=== PATIENT | male | born 1960 | race Asian ===

== ENCOUNTER 2019-04-13 14:09 | Inpatient (IN) | payer MEDICARE, MEDICAID ==
[~2019-04-13] VITALS: Ht 172.7 cm; Wt 77.6 kg
[~2019-04-13 14:09] MED LIST: DIVA-76 PO; LOSA25TA41 PO; RISP2 PO; ROSU20TA23 PO
[2019-04-13] MEDS ORDERED: RISP3 PO (15:04)
[2019-04-13] MEDS ORDERED: METF-960 PO (15:04)
[2019-04-13 15:06] VITALS: BP 151/82
[2019-04-13] MEDS ORDERED: LORazepam 2 MG TABLET PO PRN (15:15)
[2019-04-13] MEDS ORDERED: ZOLPIDEM TARTRATE 10 MG TABLET PO PRN (15:15)
[2019-04-13] MEDS ORDERED: HALOPERIDOL 5 MG TABLET PO PRN (15:15)
[2019-04-13] MEDS ORDERED: PNEUMOCOCCAL VACCINE POLYVALENT 0.5 ML VIAL [PPSV23] IM ONE (16:15)
[2019-04-13 16:21] VITALS: BP 159/87
[2019-04-13 16:54] LABS: GLUCOMETER DEV NAME(LOC) BV2S.; GLUCOSE,POINT OF CARE 148 MG/DL (70-110)
[2019-04-13] MEDS: RisperiDONE 3 MG TABLET PO SCH (16:54)
[2019-04-13] MEDS: DIVALPROEX SODIUM 500 MG DR TABLET PO SCH (16:55)
[2019-04-13] MEDS ORDERED: GLUCAGON,HUMAN RECOMBINANT 1 MG VIAL IM PRN (17:15)
[2019-04-13 20:50] LABS: GLUCOMETER DEV NAME(LOC) BV2S.; GLUCOSE,POINT OF CARE 153 MG/DL (70-110)
[2019-04-13] MEDS ORDERED: DEXTROSE 50%-WATER 25 GM/50 ML SYRINGE IVP PRN (21:00)
[2019-04-13] MEDS ORDERED: PETROLATUM,WHITE 28 GM JELLY TP PRN (21:00)
[2019-04-13] MEDS ORDERED: IBUPROFEN 600 MG TABLET PO PRN (21:00)
[2019-04-13] MEDS ORDERED: INSULIN LISPRO 100 UNITS/ML SQ PRN (21:00)
[2019-04-13] MEDS ORDERED: ACETAMINOPHEN 325 MG TABLET PO PRN (21:00)
[2019-04-13] MEDS ORDERED: ONDANSETRON HCL 4 MG TABLET PO PRN (21:00)
[2019-04-13] MEDS ORDERED: ALBUTEROL SULFATE HFA 90 MCG/PUFF 8 GM INHALER IH PRN (21:00)
[2019-04-13] MEDS ORDERED: MAGNESIUM HYDROXIDE SUSPENSION 30 ML UDCUP PO PRN (21:00)
[2019-04-13] MEDS ORDERED: BACITRACIN 28.4 GM OINTMENT TP PRN (21:00)
[2019-04-13] MEDS ORDERED: BENZOCAINE/MENTHOL LOZENGE MM PRN (21:00)
[2019-04-13] MEDS ORDERED: LOPERAMIDE HCL 2 MG CAPSULE PO PRN (21:00)
[2019-04-13] MEDS ORDERED: CloNIDine HCL 0.1 MG TABLET PO PRN (21:00)
[2019-04-13] MEDS ORDERED: MAG HYDROX/AL HYDROX/SIMETH ES 30 ML SUSPENSION UDCUP PO PRN (21:00)
[2019-04-13] MEDS: LOSARTAN POTASSIUM 25 MG TABLET PO SCH (21:37)
[2019-04-13 22:09] VITALS: BP 133/82
[2019-04-14 06:20] VITALS: BP 109/79
[2019-04-14 06:49] LABS: GLUCOMETER DEV NAME(LOC) BV2S.; GLUCOSE,POINT OF CARE 134 MG/DL (70-110)
[2019-04-14] MEDS ORDERED: MetFORMIN HCL 500 MG TABLET PO SCH (07:00)
[2019-04-14 07:50] LABS: BASOPHILS % (AUTO) 1.1 % (0.0-2.0); EOSINOPHILS % (AUTO) 6.5 % (1.0-6.0); HEMATOCRIT 40.7 % (41-53); HEMOGLOBIN 13.9 g/dL (13.5-17.5); LYMPHOCYTES # (AUTO) 1.8 K/uL (1.0-4.8); LYMPHOCYTES % (AUTO) 30.2 % (22.0-44.0); MEAN CORPUSCULAR HEMOGLOBIN 32.1 pg (26.0-34.0); MEAN CORPUSCULAR HGB CONC 34.2 G/dL (31.0-37.0); MEAN CORPUSCULAR VOLUME 94 fL (80-100); MONOCYTES # (AUTO) 0.7 K/uL (0.1-1.0); MONOCYTES % (AUTO) 11.7 % (2.0-9.0); NEUTROPHILS # (AUTO) 3.1 K/uL (1.8-7.7); NEUTROPHILS % (AUTO) 50.5 % (40.0-70.0); PLATELET COUNT (AUTO) 166 K/uL (150-450); RED BLOOD CELL COUNT(AUTO) 4.33 MIL/uL (4.50-5.90); RED CELL DISTRIBUTION WIDTH 12.8 % (11.5-14.5)
[2019-04-14 08:06] LABS: AMPHET/METH SCREEN,URINE NEGATIVE (NEGATIVE); BARBITURATE SCREEN, URINE NEGATIVE (NEGATIVE); BENZODIAZEPINES SCREEN,URINE NEGATIVE (NEGATIVE); CANNABINOID SCREEN,URINE NEGATIVE (NEGATIVE); COCAINE SCREEN,URINE NEGATIVE (NEGATIVE); METHADONE SCREEN, URINE NEGATIVE (NEGATIVE); OPIATE SCREEN,URINE NEGATIVE (NEGATIVE)
[2019-04-14 08:08] LABS: APPEARANCE,URINE CLEAR (CLEAR); BILIRUBIN,URINE NEGATIVE (NEGATIVE); GLUCOSE, URINE (UA) 500 mg/dL (NEGATIVE); KETONES,URINE NEGATIVE (NEGATIVE); LEUKOCYTE ESTERASE ,URINE NEGATIVE (NEGATIVE); NITRATE,URINE NEGATIVE (NEGATIVE); OCCULT BLOOD,URINE NEGATIVE (NEGATIVE); PROTEIN,URINE NEGATIVE (NEGATIVE); UROBILINOGEN,URINE 0.2 mg/dL (<=1.0)
[2019-04-14 08:09] LABS: PHENCYCLIDINE SCREEN,URINE NEGATIVE (NEGATIVE)
[2019-04-14 08:15] LABS: BACTERIA,URINE None Seen /HPF (None Seen); RBC,URINE None Seen /HPF (0-2); WBC,URINE None Seen /HPF (0-5)
[2019-04-14 08:17] LABS: HEMOGLOBIN A1C 8.2 % (4.5-6.2)
[2019-04-14 08:36] LABS: ALANINE AMINOTRANSFERASE 28 U/L (12-78); ALBUMIN 3.1 g/dL (3.4-5.0); ALKALINE PHOSPHATASE 66 U/L (46-116); ANION GAP 9 mmol/L (8-16); ASPARTATE AMINOTRANSFERASE 17 U/L (15-37); BILIRUBIN,TOTAL 0.6 mg/dL (0.1-1.0); CARBON DIOXIDE 27 mmol/L (22-29); CHLORIDE 105 mmol/L (98-107); CHOLESTEROL 126 mg/dL (131-200); CREATININE 0.95 mg/dL (0.60-1.30); FREE T4 (FREE THYROXINE) 1.73 ng/dL (0.76-1.46); GLOMERULAR FILTR. RATE CALC > 60 mL/min (>60); GLUCOSE,RANDOM 111 mg/dL (70-110); HDL CHOLESTEROL 42 mg/dL (40-60); LDL CHOL (CALC.) 73 mg/dL (0-130); POTASSIUM 4.2 mmol/L (3.5-5.1); SODIUM SERUM 141 mmol/L (136-145); THYROID STIMULATING HORMONE 0.64 uIU/mL (0.36-3.74); TOTAL PROTEIN, SERUM 6.5 g/dL (6.4-8.2); TRIGLYCERIDES 57 mg/dL (15-150); UREA NITROGEN, BLOOD 13 mg/dL (7-18)
[2019-04-14] MEDS: DOCUSATE SODIUM 100 MG CAPSULE PO SCH (08:59)
[2019-04-14] MEDS: LOSARTAN POTASSIUM 25 MG TABLET PO SCH (08:59)
[2019-04-14] MEDS: ROSUVASTATIN CALCIUM 20 MG TABLET PO SCH (08:59)
[2019-04-14] MEDS: DIVALPROEX SODIUM 500 MG DR TABLET PO SCH ×2 (08:59→16:45)
[2019-04-14] MEDS: RisperiDONE 3 MG TABLET PO SCH ×2 (08:59→16:45)
[2019-04-14] MEDS: OMEPRAZOLE 20 MG CAPSULE PO SCH (08:59)
[2019-04-14 09:26] VITALS: BP 123/70
[2019-04-14 11:19] LABS: GLUCOMETER DEV NAME(LOC) BV2S.; GLUCOSE,POINT OF CARE 156 MG/DL (70-110)
[2019-04-14] MEDS ORDERED: NITROGLYCERIN 0.4 MG SUBLINGUAL TABLET #25 SL PRN (15:30)
[2019-04-14 16:08] VITALS: BP 135/78
[2019-04-14 16:24] LABS: GLUCOMETER DEV NAME(LOC) BV2S.; GLUCOSE,POINT OF CARE 159 MG/DL (70-110)
[2019-04-14] MEDS: MAGNESIUM OXIDE 400 MG TABLET PO SCH (16:48)
[2019-04-14] MEDS: MetFORMIN HCL 500 MG TABLET PO SCH (16:52)
[2019-04-14] MEDS: INSULIN LISPRO 100 UNITS/ML SQ PRN (21:34)
[2019-04-14] MEDS: ATORVASTATIN CALCIUM 40 MG TABLET PO SCH (21:50)
[2019-04-15 05:42] VITALS: BP 113/72
[2019-04-15] MEDS: MetFORMIN HCL 500 MG TABLET PO SCH ×2 (07:30→16:49)
[2019-04-15 07:37] LABS: GLUCOMETER DEV NAME(LOC) BV2S.; GLUCOSE,POINT OF CARE 172 MG/DL (70-110)
[2019-04-15 07:46] LABS: GLUCOMETER DEV NAME(LOC) BV2S.; GLUCOSE,POINT OF CARE 138 MG/DL (70-110)
[2019-04-15 08:45] VITALS: BP 122/70
[2019-04-15] MEDS: ROSUVASTATIN CALCIUM 20 MG TABLET PO SCH (08:47)
[2019-04-15] MEDS: MAGNESIUM OXIDE 400 MG TABLET PO SCH ×2 (08:47→16:50)
[2019-04-15] MEDS: LOSARTAN POTASSIUM 25 MG TABLET PO SCH (08:47)
[2019-04-15] MEDS: DOCUSATE SODIUM 100 MG CAPSULE PO SCH (08:47)
[2019-04-15] MEDS: RisperiDONE 3 MG TABLET PO SCH ×2 (08:47→16:50)
[2019-04-15] MEDS: ASPIRIN 81 MG CHEWABLE TABLET PO SCH (08:47)
[2019-04-15] MEDS: DIVALPROEX SODIUM 500 MG DR TABLET PO SCH ×2 (08:47→16:49)
[2019-04-15] MEDS: LISINOPRIL 5 MG TABLET PO SCH (08:47)
[2019-04-15] MEDS: SitaGLIPtin PHOSPHATE 100 MG TABLET PO SCH (08:47)
[2019-04-15] MEDS: ISOSORBIDE MONONITRATE 30 MG ER TABLET PO SCH (08:47)
[2019-04-15] MEDS: OMEPRAZOLE 20 MG CAPSULE PO SCH (08:47)
[2019-04-15 11:14] LABS: GLUCOMETER DEV NAME(LOC) BV2S.; GLUCOSE,POINT OF CARE 143 MG/DL (70-110)
[2019-04-15 16:39] LABS: GLUCOMETER DEV NAME(LOC) BV2S.; GLUCOSE,POINT OF CARE 149 MG/DL (70-110)
[2019-04-15 17:05] VITALS: BP 118/68
[2019-04-15] MEDS: ATORVASTATIN CALCIUM 40 MG TABLET PO SCH (20:34)
[2019-04-15] MEDS: INSULIN LISPRO 100 UNITS/ML SQ PRN (20:42)
[2019-04-15 21:09] LABS: GLUCOMETER DEV NAME(LOC) BV2S.; GLUCOSE,POINT OF CARE 166 MG/DL (70-110)
[2019-04-16 05:11] VITALS: BP 116/72
[2019-04-16 06:29] LABS: GLUCOMETER DEV NAME(LOC) BV2S.; GLUCOSE,POINT OF CARE 101 MG/DL (70-110)
[2019-04-16] MEDS: MetFORMIN HCL 500 MG TABLET PO SCH ×2 (06:35→16:45)
[2019-04-16 08:29] VITALS: BP 120/61
[2019-04-16] MEDS: ROSUVASTATIN CALCIUM 20 MG TABLET PO SCH (08:34)
[2019-04-16] MEDS: LISINOPRIL 5 MG TABLET PO SCH (08:34)
[2019-04-16] MEDS: DIVALPROEX SODIUM 500 MG DR TABLET PO SCH ×2 (08:34→16:45)
[2019-04-16] MEDS: MAGNESIUM OXIDE 400 MG TABLET PO SCH ×2 (08:34→16:45)
[2019-04-16] MEDS: LOSARTAN POTASSIUM 25 MG TABLET PO SCH (08:34)
[2019-04-16] MEDS: ASPIRIN 81 MG CHEWABLE TABLET PO SCH (08:34)
[2019-04-16] MEDS: ISOSORBIDE MONONITRATE 30 MG ER TABLET PO SCH (08:34)
[2019-04-16] MEDS: DOCUSATE SODIUM 100 MG CAPSULE PO SCH (08:34)
[2019-04-16] MEDS: RisperiDONE 3 MG TABLET PO SCH ×2 (08:34→16:45)
[2019-04-16] MEDS: OMEPRAZOLE 20 MG CAPSULE PO SCH (08:34)
[2019-04-16] MEDS: SitaGLIPtin PHOSPHATE 100 MG TABLET PO SCH (08:34)
[2019-04-16] MEDS: INSULIN LISPRO 100 UNITS/ML SQ PRN ×2 (11:02→16:36)
[2019-04-16 11:14] LABS: GLUCOMETER DEV NAME(LOC) BV2S.; GLUCOSE,POINT OF CARE 175 MG/DL (70-110)
[2019-04-16 16:03] VITALS: BP 136/79
[2019-04-16 16:33] LABS: GLUCOMETER DEV NAME(LOC) BV2S.; GLUCOSE,POINT OF CARE 144 MG/DL (70-110)
[2019-04-16] MEDS: ATORVASTATIN CALCIUM 40 MG TABLET PO SCH (20:17)
[2019-04-16 20:24] LABS: GLUCOMETER DEV NAME(LOC) BV2S.; GLUCOSE,POINT OF CARE 115 MG/DL (70-110)
[2019-04-17 06:05] VITALS: BP 126/72
[2019-04-17] MEDS: MetFORMIN HCL 500 MG TABLET PO SCH ×2 (07:03→16:50)
[2019-04-17 07:09] LABS: GLUCOMETER DEV NAME(LOC) BV2S.; GLUCOSE,POINT OF CARE 107 MG/DL (70-110)
[2019-04-17 08:07] VITALS: BP 119/76
[2019-04-17] MEDS: ROSUVASTATIN CALCIUM 20 MG TABLET PO SCH (08:25)
[2019-04-17] MEDS: LISINOPRIL 5 MG TABLET PO SCH (08:25)
[2019-04-17] MEDS: ISOSORBIDE MONONITRATE 30 MG ER TABLET PO SCH (08:25)
[2019-04-17] MEDS: DOCUSATE SODIUM 100 MG CAPSULE PO SCH (08:25)
[2019-04-17] MEDS: RisperiDONE 3 MG TABLET PO SCH ×2 (08:25→16:50)
[2019-04-17] MEDS: SitaGLIPtin PHOSPHATE 100 MG TABLET PO SCH (08:25)
[2019-04-17] MEDS: LOSARTAN POTASSIUM 25 MG TABLET PO SCH (08:25)
[2019-04-17] MEDS: MAGNESIUM OXIDE 400 MG TABLET PO SCH ×2 (08:25→16:50)
[2019-04-17] MEDS: OMEPRAZOLE 20 MG CAPSULE PO SCH (08:25)
[2019-04-17] MEDS: DIVALPROEX SODIUM 500 MG DR TABLET PO SCH ×2 (08:25→16:50)
[2019-04-17] MEDS: ASPIRIN 81 MG CHEWABLE TABLET PO SCH (08:25)
[2019-04-17 10:59] LABS: GLUCOMETER DEV NAME(LOC) BV2S.; GLUCOSE,POINT OF CARE 159 MG/DL (70-110)
[2019-04-17] MEDS: INSULIN LISPRO 100 UNITS/ML SQ PRN ×3 (11:07→20:21)
[2019-04-17 16:07] VITALS: BP 113/60
[2019-04-17 16:45] LABS: GLUCOMETER DEV NAME(LOC) BV2S.; GLUCOSE,POINT OF CARE 156 MG/DL (70-110)
[2019-04-17] MEDS: ATORVASTATIN CALCIUM 40 MG TABLET PO SCH (20:18)
[2019-04-17 20:54] LABS: GLUCOMETER DEV NAME(LOC) BV2S.; GLUCOSE,POINT OF CARE 171 MG/DL (70-110)
[2019-04-18 06:44] VITALS: BP 117/66
[2019-04-18 06:44] LABS: GLUCOMETER DEV NAME(LOC) BV2S.; GLUCOSE,POINT OF CARE 117 MG/DL (70-110)
[2019-04-18] MEDS: MetFORMIN HCL 500 MG TABLET PO SCH ×2 (07:11→16:51)
[2019-04-18 08:24] VITALS: BP 120/70
[2019-04-18] MEDS: ROSUVASTATIN CALCIUM 20 MG TABLET PO SCH (09:15)
[2019-04-18] MEDS: ISOSORBIDE MONONITRATE 30 MG ER TABLET PO SCH (09:15)
[2019-04-18] MEDS: DOCUSATE SODIUM 100 MG CAPSULE PO SCH (09:15)
[2019-04-18] MEDS: DIVALPROEX SODIUM 500 MG DR TABLET PO SCH ×2 (09:15→16:51)
[2019-04-18] MEDS: RisperiDONE 3 MG TABLET PO SCH ×2 (09:15→16:51)
[2019-04-18] MEDS: LOSARTAN POTASSIUM 25 MG TABLET PO SCH (09:15)
[2019-04-18] MEDS: OMEPRAZOLE 20 MG CAPSULE PO SCH (09:15)
[2019-04-18] MEDS: SitaGLIPtin PHOSPHATE 100 MG TABLET PO SCH (09:15)
[2019-04-18] MEDS: MAGNESIUM OXIDE 400 MG TABLET PO SCH ×2 (09:15→16:51)
[2019-04-18] MEDS: LISINOPRIL 5 MG TABLET PO SCH (09:16)
[2019-04-18] MEDS: ASPIRIN 81 MG CHEWABLE TABLET PO SCH (09:16)
[2019-04-18 11:29] LABS: GLUCOMETER DEV NAME(LOC) BV2S.; GLUCOSE,POINT OF CARE 140 MG/DL (70-110)
[2019-04-18 16:32] VITALS: BP 100/61
[2019-04-18 16:34] LABS: GLUCOMETER DEV NAME(LOC) BV2S.; GLUCOSE,POINT OF CARE 250 MG/DL (70-110)
[2019-04-18] MEDS: INSULIN LISPRO 100 UNITS/ML SQ PRN (16:59)
[2019-04-18 20:44] LABS: GLUCOMETER DEV NAME(LOC) BV2S.; GLUCOSE,POINT OF CARE 127 MG/DL (70-110)
[2019-04-18] MEDS: ATORVASTATIN CALCIUM 40 MG TABLET PO SCH (20:45)
[2019-04-19 00:33] VITALS: BP 112/70
[2019-04-19] MEDS: MetFORMIN HCL 500 MG TABLET PO SCH ×2 (07:09→16:56)
[2019-04-19 07:35] LABS: GLUCOMETER DEV NAME(LOC) BV2S.; GLUCOSE,POINT OF CARE 110 MG/DL (70-110)
[2019-04-19 08:14] VITALS: BP 129/82
[2019-04-19] MEDS: OMEPRAZOLE 20 MG CAPSULE PO SCH (08:35)
[2019-04-19] MEDS: ROSUVASTATIN CALCIUM 20 MG TABLET PO SCH (08:35)
[2019-04-19] MEDS: LISINOPRIL 5 MG TABLET PO SCH (08:35)
[2019-04-19] MEDS: SitaGLIPtin PHOSPHATE 100 MG TABLET PO SCH (08:35)
[2019-04-19] MEDS: ISOSORBIDE MONONITRATE 30 MG ER TABLET PO SCH (08:35)
[2019-04-19] MEDS: LOSARTAN POTASSIUM 25 MG TABLET PO SCH (08:35)
[2019-04-19] MEDS: ASPIRIN 81 MG CHEWABLE TABLET PO SCH (08:36)
[2019-04-19] MEDS: RisperiDONE 3 MG TABLET PO SCH ×2 (08:36→16:56)
[2019-04-19] MEDS: MAGNESIUM OXIDE 400 MG TABLET PO SCH ×2 (08:36→16:56)
[2019-04-19] MEDS: DIVALPROEX SODIUM 500 MG DR TABLET PO SCH ×2 (08:36→16:56)
[2019-04-19] MEDS: DOCUSATE SODIUM 100 MG CAPSULE PO SCH (08:36)
[2019-04-19 10:59] LABS: GLUCOMETER DEV NAME(LOC) BV2S.; GLUCOSE,POINT OF CARE 136 MG/DL (70-110)
[2019-04-19] MEDS ORDERED: ATOR40TA28 PO (11:41)
[2019-04-19] MEDS ORDERED: MAGOX PO (11:41)
[2019-04-19] MEDS ORDERED: DIVA-78 PO (11:41)
[2019-04-19] MEDS ORDERED: RISP3 PO (11:41)
[2019-04-19] MEDS ORDERED: ISOS30TA6 PO (11:41)
[2019-04-19] MEDS ORDERED: SITA100 PO (11:41)
[2019-04-19] MEDS ORDERED: ROSU20TA23 PO (11:41)
[2019-04-19] MEDS ORDERED: LOSA25TA41 PO (11:41)
[2019-04-19] MEDS ORDERED: ASPI81TA39 PO (11:41)
[2019-04-19] MEDS ORDERED: METF-960 PO (11:41)
[2019-04-19] MEDS ORDERED: LISI-660 PO (11:41)
[2019-04-19 17:05] LABS: GLUCOMETER DEV NAME(LOC) BV2S.; GLUCOSE,POINT OF CARE 115 MG/DL (70-110)
== END 2019-04-19 17:20 | disposition home or self-care (01) | DRG 885 ==
LOC: B2S 15:29
PROVIDERS: ADMIT Psychiatry & Neurology Psychiatry; ATTEND Psychiatry & Neurology Psychiatry
DX: F25.9 Schizoaffective disorder, unspecified (principal); R45.851 Suicidal ideations; F41.9 Anxiety disorder, unspecified; G47.00 Insomnia, unspecified; I10 Essential (primary) hypertension; K59.00 Constipation, unspecified; E78.5 Hyperlipidemia, unspecified; E11.9 Type 2 diabetes mellitus without complications; Z79.899 Other long term (current) drug therapy; Z56.0 Unemployment, unspecified; Z79.84 Long term (current) use of oral hypoglycemic drugs
CPT/HCPCS: 80307; 83036; 84439; 84443

== ENCOUNTER 2024-08-30 19:11 | Emergency (ER) | payer OTHER ==
[~2024-08-30] VITALS: Ht 172.7 cm; Wt 72.7 kg
[~2024-08-30 19:11] MED LIST changes: +ASPI81TA39 PO; +ATOR40TA28 PO; +DIVA-112 PO; -DIVA-76 PO; +ISOS30TA92 PO; +LISI-892 PO; +LOSA-381 PO; -LOSA25TA41 PO; +MAGN400T7 PO; +METF-1211 PO; -RISP2 PO; +RISP3TAB35 PO; -ROSU20TA23 PO; +ROSU20TA98 PO; +SITA100 PO
[2024-08-30 19:14] VITALS: TEMP 98.7
[2024-08-30 19:42] LABS: GLUCOMETER DEV NAME(LOC) ER.7; GLUCOSE,POINT OF CARE 158 MG/DL (70-110)
[2024-08-30 19:59] VITALS: BP 151/78; PULSE 59; RESP 20; O2SAT 98
[2024-08-30] MEDS: ACETAMINOPHEN 500 MG TABLET PO ONE (21:08)
[2024-08-30] MEDS: PERTUSS(ACELL),DIPH,TET/PF 0.5 ML SYRINGE [ADULT] IM. ONE (21:08)
[2024-08-30] MEDS: IBUPROFEN 600 MG TABLET PO ONE (21:09)
[2024-08-30] MEDS: BACITRACIN 0.9 GM PACKET OINTMENT TP ONE (21:09)
[2024-08-30] MEDS ORDERED: BACI28.410 TP (23:19)
[2024-08-31] MEDS: GELATIN SPONGE,ABSORBABLE 12-7 MM TP ONE (00:43)
== END 2024-08-31 00:50 | disposition home or self-care (01) ==
LOC: EMS 19:22
DX: S61.215A Laceration without foreign body of left ring finger without damage to nail, initial encounter (principal); E11.9 Type 2 diabetes mellitus without complications; Z79.82 Long term (current) use of aspirin; W26.0XXA Contact with knife, initial encounter; Y93.89 Activity, other specified; Y92.89 Other specified places as the place of occurrence of the external cause; Y99.8 Other external cause status
CPT/HCPCS: 12001; 82962; 90471; 90715; 99283